=== PATIENT | female | born 1980 | race Hispanic/Latino ===

== ENCOUNTER 2018-09-09 07:51 | Emergency (ER) | payer BC ==
[~2018-09-09] VITALS: Ht 157.5 cm; Wt 62.6 kg
[~2018-09-09 07:51] MED LIST: ACET-687 PO; CEFP200T PO
--- NOTE | 2018-09-09 07:57 | NUR ---
[facility] PT TO [facility]. STATES SHE DID A WHEAT CHALLENGE THIS AM, FACE, TONGUE SWELLING PRESENT. TOOK 25MG PO CAME TO ER. BEDSIDE MONITOR ON, REPORTED TO DR. BOLTON.
[2018-09-09 08:07] VITALS: BP 134/76
[2018-09-09] MEDS ORDERED: BENADRYL IV STA (08:22)
[2018-09-09] MEDS ORDERED: SOLU-MEDROL IV STA (08:22)
[2018-09-09] MEDS ORDERED: PEPCID IV STA (08:22)
[2018-09-09] MEDS ORDERED: EPINEPHrine SQ STA (08:22)
[2018-09-09] MEDS ORDERED: PEPCID IV ONE (08:29)
--- NOTE | 2018-09-09 08:29 | ER.PDOC ---
General Chief Complaint: Allergic Reaction Stated Complaint: ALGERIC REACTION Time seen by MD: 08:25 Source: patient Exam Limitations: no limitations History of Present Illness Initial Comments Facial swelling after eating wheat bread this morning. Severity: moderate Associated Symptoms: facial swelling Identified Cause: yes Allergies: Coded Allergies: No Known Allergies (Unverified , 05/24/15) Home Meds Reported Medications Cefpodoxime Proxetil (CEFPODOXIME PROXETIL) 200 Mg Tablet, 2 TAB PO BID for 7 Days, TAB 05/25/15 Acetaminophen With Codeine (TYLENOL WITH CODEINE #4 TABLET) 1 Each Tablet, 1 TAB PO Q6 PRN for PAIN MODERATE, #40 TAB 05/25/15 Vital Signs First Vital Signs Date Time Temp Pulse Resp B/P (MAP) Pulse Ox O2 Delivery O2 Flow Rate FiO2 09/09/18 08:03 98.3 96 12 100 Room Air 98.3 09/09/18 08:07 134/76 (95) Last Vital Signs Date Time Temp Pulse Resp B/P (MAP) Pulse Ox O2 Delivery O2 Flow Rate FiO2 09/09/18 08:07 98.3 96 12 134/76 (95) 100 Room Air 98.3 Past Medical History Medical History: other Surgical History: , other LMP (females 10-50): 1 month Social History Smoking: less than 1 pack/day Alcohol Use: rarely Drug Use: none Constitutional: no symptoms reported EENTM: see HPI Respiratory: no symptoms reported Cardiovascular: no symptoms reported Gastrointestinal: no symptoms reported All Other Systems: Reviewed and Negative Physical Exam General Appearance: alert, no distress HEENT: ENT nml inspection, pharynx, voice nml, angioedema Skin: no rash, nml color, warm/dry Extremities: non-tender, nml ROM, no edema Neck: nml inspection Respiratory: no resp. distress, breath sounds nml CVS: reg. rate & rhythm, heart sounds nml Abdomen: non-tender, no organomegaly NEURO/PSYCH: oriented x 3, CN's nml as tested, motor nml, sensation nml, mood/ affect nml Progress Progress Patient feeling better and swelling almost gone. Departure Time of Disposition: 09:22 Disposition: 01 HOME, SELF-CARE Impression: Primary Impression: Acute allergic reaction Additional Impression: Angioedema Condition: Stable Referrals: PCP,UNKNOWN (PCP) PRIMARY CARE PROVIDER Additional Instructions: Benadryl Pepcid Prednisone Use your EpiPen next time it happens before coming to the ED F/U with PCP in 2-3 days Duration or Time Spent with Pa: 45 mins Problem Qualifiers Primary Impression: Acute allergic reaction Encounter type: initial encounter Qualified Codes: T78.40XA - Allergy, unspecified, initial encounter Additional Impression: Angioedema Encounter type: initial encounter Qualified Codes: T78.3XXA - Angioneurotic edema, initial encounter PILI BOLTON MD Sep 09, 2018 08:29
[2018-09-09] MEDS ORDERED: BENADRYL ONE (08:30)
[2018-09-09] MEDS ORDERED: SOLU-MEDROL ONE (08:30)
[2018-09-09] MEDS ORDERED: EPINEPHrine ONE (08:30)
[2018-09-09 09:34] VITALS: BP 106/60
[2018-09-09 09:40] VITALS: BP 134/76
== END 2018-09-09 09:34 | disposition home or self-care (01) ==
LOC: ER 07:51
DX: T78.3XXA Angioneurotic edema, initial encounter (principal); F17.210 Nicotine dependence, cigarettes, uncomplicated; Z79.899 Other long term (current) drug therapy; X58.XXXA Exposure to other specified factors, initial encounter
CPT/HCPCS: 96372; 96374; 96375; 99285; J0171; J1200; J2930; J3490